=== PATIENT | male | born 1980 | race Two or more races ===

== ENCOUNTER 2016-10-28 22:34 | Emergency (ER) | payer SELFPAY ==
[~2016-10-28] VITALS: Ht 162.6 cm; Wt 68.0 kg
--- NOTE | 2016-10-28 22:40 | NUR ---
PT BIBRA "FOUND ON THE STREETS DRUNK"; NO TRAUMA NOTED. PT REFUSED TO ANSWER QUESTIONS. BREATHING NOTED ABNORMAL BUT INTENTIONAL. LUNG SOUND CLEAR. DR. MEJIA MADE AWARE. NO NVD AT THIS TIME. PT GOWNED AND PLACED ON MNITOR WAITING FOR MD ZHOU.
--- NOTE | 2016-10-28 22:45 | NUR ---
DR MEJIA AT BEDSIDE, INSERTED NASAL TRUMPET IN RIGHT NOSTRIL. PT PLACED ON SIMPLE MASK 15LMP
--- NOTE | 2016-10-28 22:55 | NUR ---
RADIOLOGY AT BEDSIDE FOR CXRAY
--- NOTE | 2016-10-28 22:58 | NUR ---
PT TO RADIOLOGY FOR CT HEAD
[2016-10-28] MEDS ORDERED: IV NS 0.9% 1,000 ML BAG IV ONE (23:00)
[2016-10-28] MEDS ORDERED: ONDANSETRON HCL/PF 4 MG/2 ML VIAL IVP ONE (23:00)
[2016-10-28] MEDS ORDERED: Magnesium 1 GM/2 ML VIAL IV ONE (23:00)
[2016-10-28] MEDS ORDERED: Magnesium 1GM/D5W 100ML PREMIX 200 ML IV ONE (23:01)
[2016-10-28] MEDS ORDERED: ONDANSETRON HCL/PF 4 MG/2 ML VIAL ONE (23:01)
[2016-10-28 23:16] LABS: BASOPHILS % (AUTO) 0.6 % (0.0-2.0); EOSINOPHILS # (AUTO) 0.1 /CMM (0.0-0.7); EOSINOPHILS % (AUTO) 1.6 % (0.0-6.0); HEMATOCRIT 42 % (39-51); HEMOGLOBIN 14.7 g/dL (13.5-17.5); LYMPHOCYTES % (AUTO) 46.5 % (20.0-44.0); MEAN CORPUSCULAR HEMOGLOBIN 33 PG (26.0-33.0); MEAN CORPUSCULAR HGB CONC 35 g/dl (31.0-36.0); MEAN CORPUSCULAR VOLUME 94 fL (80-96); MONOCYTES # (AUTO) 0.7 /CMM (0.1-1.30); NEUTROPHILS # (AUTO) 2.6 /CMM (1.8-8.9); NEUTROPHILS % (AUTO) 40.3 % (43.0-81.0); PLATELET COUNT (AUTO) 304 /CMM (150-450); RDW COEFFICIENT OF VARIATION 12.9 (11.5-15.0); WHITE BLOOD COUNT (AUTO) 6.4 K/uL (4.3-11.0)
--- NOTE | 2016-10-28 23:18 | NUR ---
PT RETURNED FROM CT. RR EVEN AND UNLABORED.
[2016-10-28 23:26] LABS: CALCIUM, SERUM 8.6 mg/dL (8.5-10.1); CARBON DIOXIDE 23 mmol/L (21-32); CHLORIDE 106 mmol/L (98-107); CREATININE 0.9 mg/dL (0.6-1.3); GLUCOSE 114 mg/dL (74-106); POTASSIUM 3.6 mmol/L (3.5-5.1); SODIUM SERUM 143 mmol/L (136-145); UREA NITROGEN, BLOOD 10 mg/dL (7-18)
[2016-10-28 23:32] LABS: ALANINE AMINOTRANSFERASE 247 U/L (12-78); ALBUMIN 3.9 g/dL (3.4-5.0); ALCOHOL, BLOOD 249 mg/dL (0-0); ALKALINE PHOSPHATASE 118 U/L (46-116); ASPARTATE AMINOTRANSFERASE 78 U/L (15-37); BILIRUBIN,DIRECT 0.1 mg/dL (0.0-0.2); BILIRUBIN,TOTAL 0.3 mg/dL (0.2-1.0); TOTAL PROTEIN, SERUM 7.8 g/dL (6.4-8.2); TROPONIN I < 0.017 ng/mL (0.00-0.056)
[2016-10-28 23:33] LABS: ACETAMINOPHEN 0 ug/ml (10-30); CREATINE KINASE, TOTAL 215 U/L (39-308)
--- NOTE | 2016-10-28 23:36 | NUR ---
PT AWAKE, JACKIE AT BEDSIDE. URINE COLLECTED. CALLED LAB FOR CRUISE COUNSELOR.
[2016-10-28 23:39] LABS: INR 0.89 (0.87-1.13); PROTHROMBIN TIME 9.5 SECS (9.5-12.7)
[2016-10-29 00:02] LABS: APPEARANCE,URINE CLEAR (CLEAR); BILIRUBIN,URINE NEGATIVE (NEGATIVE); BLOOD, URINE NEGATIVE Ery/uL (NEGATIVE); KETONES,URINE NEGATIVE (NEGATIVE); LEUKOCYTE ESTERASE ,URINE NEGATIVE (NEGATIVE); NITRITE, URINE NEGATIVE (NEGATIVE); PH,URINE 5.5 (5.0-8.0); PROTEIN,URINE NEGATIVE (NEGATIVE); UGLUCOSE NEGATIVE (NEGATIVE); UROBILINOGEN,URINE 0.2 EU/dL (0.2)
[2016-10-29 00:05] LABS: COLOR,URINE STRAW (YELLOW)
--- NOTE | 2016-10-29 01:15 | NUR ---
Patient is resting comfortably in bed with eyes closed. Easily aroused. VSS
--- NOTE | 2016-10-29 02:24 | NUR ---
Patient is resting comfortably in bed with eyes closed. Easily aroused. VSS
--- NOTE | 2016-10-29 04:06 | NUR ---
Patient is resting comfortably in bed with eyes closed. Easily aroused. VSS. pt provided with urinal.
--- NOTE | 2016-10-29 05:21 | NUR ---
PT REMOVED NASAL TRUMPET IN RIGHT NOSTRIL. AOX3. NO SOB NOTED.
--- NOTE | 2016-10-29 05:21 | NUR ---
VERBAL ORDERS PER DR. MEJIA TO GIVE PT 1L NS BOLUS NOW ONE TIME. PT MEDICATED.
--- NOTE | 2016-10-29 05:45 | NUR ---
PT IS CALLING FAMILY FRIEND FOR DRIVER LICENSE AGENT.
[2016-10-29] MEDS ORDERED: IV NS 0.9% 1,000 ML BAG IV ONE (06:00)
--- NOTE | 2016-10-29 06:33 | NUR ---
PT PASSED GAIT TEST. DR. MEJIA MADE AWARE
--- NOTE | 2016-10-29 07:12 | NUR ---
IV removed. Catheter intact and site benign. Pressure and 4x4 applied to site. No bleeding noted. Patient discharged to home in stable condition. Written and verbal after care instructions given. Patient verbalizes understanding of instruction. ambulatory with a steady gait. pt picked up by friends. instructed not to drive. pt verbalize understanding.
[2016-10-29 07:13] VITALS: BP 124/84
== END 2016-10-29 07:14 | disposition home or self-care (01) ==
LOC: EDBD 22:37 → ER 22:37
DX: F10.129 Alcohol abuse with intoxication, unspecified (principal); F19.10 Other psychoactive substance abuse, uncomplicated; E86.0 Dehydration; R41.82 Altered mental status, unspecified
CPT/HCPCS: 36415; 70450-TC; 71010-TC; 80048-TC; 80076-TC; 80305; 81000-TC; 82550-TC; 82962-TC; 84484-TC; 85025-TC; 85730-TC; A4349; A4606; G0480; J2405; J3475; J7030; Z7610